=== PATIENT | male | born 1990 | race Caucasian/White ===

== ENCOUNTER → 2022-06-04 | Outpatient (CLI) | payer OTHER ==
[~2022-06-04] MED LIST: DAYPRO600 M1 PO; DICLOFENAC SOD50 MG PO; IBU-8800 MG PO; MOTRIN800 MG PO; NKHM; ROBITUSSIN-AC 160 ML PO; ZITHROMAX250 MG PO
[2022-06-04 09:55] LABS: HEMATOCRIT 45.7 % (42.0-52.0); MEAN CELL VOLUME 88.4 fl (80.0-94.0); MEAN CORPUSCULAR HGB 29.4 pg (27.0-31.0); MEAN CORPUSCULAR HGB CONC 33.3 g/dl (33.0-37.0); MEAN PLATELET VOLUME 9.2 fl (9.6-12.3); PLATELET COUNT AUTOMATED 314 10*3/uL (130-400); RED BLOOD COUNT 5.17 10*6/uL (4.50-5.90); RED CELL DISTRI WIDTH 12.2 % (0-14.5); RETICULOCYTE % 1.61 % (0.50-2.50); WHITE BLOOD COUNT 6.6 10*3/uL (4.8-10.8)
[2022-06-04 10:11] LABS: BILIRUBIN Negative (Negative); BLOOD Negative (Negative); CLARITY Clear (Clear); COLOR Yellow (Yellow); GLUCOSE Negative (Negative); KETONE Negative (Negative); LEUKO ESTERASE Negative (Negative); NITRITE Negative (Negative); PH 5.5 (4.5-8.0); SPECIFIC GRAVITY 1.015 (1.001-1.030); UROBILINOGEN 0.2 E.U./dl (0.0-1.0)
[2022-06-04 10:14] LABS: ALKALINE PHOSPHATASE 76 U/L (46-116); BUN 14 mg/dl (9-23); CHLORIDE 105 mmol/L (98-107); CHOLESTEROL 185 mg/dL (<200); GAMMA GLUTAMYL TRANSPEPTIDASE 38 U/L (0-73); LDL CHOLESTEROL 94 mg/dL (9-159); POTASSIUM 4.2 mmol/L (3.4-5.1); SGPT/ALT 44 U/L (10-49); THYROID STIM HORMONE (HS) 1.071 uIU/ml (0.550-4.780); TOTAL PROTEIN 7.5 gm/dL (6.0-8.0); TRIGLYCERIDES 280 mg/dl (<150); URIC ACID 6.8 mg/dL (3.7-9.2)
[2022-06-04 10:16] LABS: ATYPICAL LYMPHS 1 % (0-0); BASOPHILS 1 % (0-1); PLATELET SUFFICIENCY NORMAL (NORMAL); POLYCHROMASIA SLIGHT; TOTAL CELLS COUNTED 100 #CELLS
[2022-06-04 11:00] LABS: RBC 0-2 rbc/hpf (0-2); WBC 0-2 wbc/hpf (0-5)
[2022-06-04 12:57] LABS: VITAMIN D, 25-HYDROXY 30.3 ng/mL (30-100)
[2022-06-05 01:06] LABS: TOTAL PROTEIN, SERUM 7.3 g/dL (6.0-8.5)
[2022-06-05 14:08] LABS: A/G RATIO 1.4 (0.7-1.7); ALBUMIN 4.2 g/dL (2.9-4.4); ALPHA-1-GLOBULIN 0.2 g/dL (0.0-0.4); ALPHA-2-GLOBULIN 0.8 g/dL (0.4-1.0); BETA GLOBULIN 1.1 g/dL (0.7-1.3); GLOBULIN, TOTAL 3.1 g/dL (2.2-3.9); M-SPIKE Not Observed g/dL (Not Observed)
[2022-06-05 16:08] LABS: ANTI-DSDNA ANTIBODIES <1 IU/mL (0-9)
== END | disposition home or self-care (01) ==
LOC: LAB 09:12
PROVIDERS: ATTEND Family Medicine
DX: E55.9 Vitamin D deficiency, unspecified (principal); E78.5 Hyperlipidemia, unspecified; R79.89 Other specified abnormal findings of blood chemistry; R53.83 Other fatigue; R74.8 Abnormal levels of other serum enzymes

== ENCOUNTER 2024-10-01 22:18 | Emergency (ER) | payer OTHER ==
[~2024-10-01] VITALS: Ht 177.8 cm; Wt 122.5 kg
[2024-10-01] MEDS ORDERED: LISINOPRIL20 MG PO (22:33)
[2024-10-01] MEDS ORDERED: Tdap Vaccine 0.5 ML SYR (Adult Vaccine) IM ONE (22:45)
[2024-10-02] MEDS ORDERED: CEPHALEXIN500 M1 PO (00:02)
[2024-10-02] MEDS ORDERED: CEPHALEXIN 500 MG CAP PO ONE (23:55)
== END 2024-10-02 00:40 | disposition home or self-care (01) ==
LOC: ED 22:18
DX: S01.01XA Laceration without foreign body of scalp, initial encounter (principal); M54.2 Cervicalgia; R55 Syncope and collapse; M54.50 Low back pain, unspecified; Z79.899 Other long term (current) drug therapy